=== PATIENT | male | born 1980 | race Caucasian/White ===

== ENCOUNTER → 2019-02-12 | Outpatient (CLI) | payer OTHER ==
--- NOTE | 2019-02-12 16:49 | Diagnostic Imaging Report ---
INDICATION: Right shoulder pain. TIME OF EXAM: 2:30 p.m. FINDINGS: Two views of the right shoulder demonstrate normal glenohumeral and acromioclavicular alignment. Acromiohumeral space is normal. No fracture or dislocation is seen. IMPRESSION: No acute bony abnormality is detected. Dictated by: Dictated on workstation # [id number]
== END ==
LOC: RAD FS 14:24
PROVIDERS: ATTEND Nurse Practitioner Family
DX: M25.511 Pain in right shoulder (principal)
CPT/HCPCS: 73030

== ENCOUNTER 2020-05-12 14:18 | Emergency (ER) | payer OTHER ==
[~2020-05-12] VITALS: Ht 185.4 cm; Wt 101.0 kg
[2020-05-12] MEDS ORDERED: ACHD5005 (14:41)
[2020-05-12] MEDS ORDERED: ALPR0.5T7 PO (14:41)
[2020-05-12] MEDS ORDERED: morphine INJ 10 MG/ML 1ML (SYR OR VIAL) IVP STA ×2 (14:53→15:25)
[2020-05-12] MEDS ORDERED: ONDANSETRON 4 MG/2 ML (SDV) Z0FRAN IVP ONE (15:00)
[2020-05-12 15:03] LABS: BASOPHILS % (AUTO) 1 % (0-10); EOSINOPHILS % (AUTO) 1 % (0-10); HEMATOCRIT 44 % (40-54); HEMOGLOBIN 15.2 G/DL (13.3-17.7); LYMPHOCYTES % (AUTO) 22 % (12-44); MEAN CORPUSCULAR HEMOGLOBIN 30 PG (25-34); MEAN CORPUSCULAR HGB CONC 35 G/DL (32-36); MEAN CORPUSCULAR VOLUME 88 FL (80-99); MEAN PLATELET VOLUME 9.1 FL (7.4-10.4); MONOCYTES % (AUTO) 9 % (0-12); NEUTROPHILS % (AUTO) 68 % (42-75); PLATELET COUNT 318 10^3/uL (130-400); WHITE BLOOD COUNT 10.5 10^3/uL (4.3-11.0)
[2020-05-12 15:04] LABS: BASOPHILS # (AUTO) 0.1 10^3/uL (0.0-0.1); EOSINOPHILS # (AUTO) 0.1 10^3/uL (0.0-0.3); LYMPHOCYTES # (AUTO) 2.3 X 10^3 (1.0-4.0); NEUTROPHILS # (AUTO) 7.2 X 10^3 (1.8-7.8)
[2020-05-12 15:07] LABS: CLARITY,URINE CLEAR; COLOR,URINE YELLOW
[2020-05-12 15:08] LABS: BILIRUBIN,URINE NEGATIVE (NEGATIVE); GLUCOSE, URINE (UA) NEGATIVE (NEGATIVE); KETONES,URINE NEGATIVE (NEGATIVE); LEUKOCYTE ESTERASE ,URINE NEGATIVE (NEGATIVE); NITRITE,URINE NEGATIVE (NEGATIVE); PROTEIN,URINE NEGATIVE (NEGATIVE); RBC,URINE 0-2 /HPF
[2020-05-12 15:10] LABS: ALANINE AMINOTRANSFERASE 65 U/L (0-55); ALBUMIN 4.6 GM/DL (3.2-4.5); ALKALINE PHOSPHATASE 87 U/L (40-136); BILIRUBIN,TOTAL 0.4 MG/DL (0.1-1.0); BUN/CREATININE RATIO 13; CALCIUM 9.1 MG/DL (8.5-10.1); CARBON DIOXIDE 24 MMOL/L (21-32); CHLORIDE 101 MMOL/L (98-107); CREATININE SERUM 0.91 MG/DL (0.60-1.30); GFR ESTIMATED > 60; GLUCOSE 100 MG/DL (70-105); POTASSIUM 4.5 MMOL/L (3.6-5.0); SODIUM 135 MMOL/L (135-145); TOTAL PROTEIN 7.4 GM/DL (6.4-8.2)
--- NOTE | 2020-05-12 15:10 | Diagnostic Imaging Report ---
PROCEDURE: CT abdomen and pelvis without contrast. TECHNIQUE: Multiple contiguous axial images were obtained through the abdomen and pelvis without the use of intravenous contrast. Auto Exposure Controls were utilized during the CT exam to meet ALARA standards for radiation dose reduction. INDICATION: Left flank pain that radiates into the left groin for two days. COMPARISON: No prior studies are available for comparison. FINDINGS: The lung bases are clear. No discrete liver mass is identified. Gallbladder is unremarkable. There is no biliary ductal dilatation. Pancreas and spleen are unremarkable. No adrenal mass is detected. Right kidney is unremarkable. Left kidney demonstrates moderate hydroureteronephrosis. Dilated left ureter is traced into the pelvis where there is a tiny 1 to 2 mm calculus just above the UVJ. No bladder calculi are seen. Aorta is nonaneurysmal. Small and large bowel loops are normal in caliber. There is no obstruction. No free fluid or fluid collection is seen. Prostate is unremarkable. Bony structures are nonacute. IMPRESSION: 1 to 2 mm distal left ureteric calculus producing moderate hydroureteronephrosis. No other significant abnormality is detected. Dictated by: Dictated on workstation # [id number]
[2020-05-12] MEDS ORDERED: KETOROLAC 30 MG/ML VIAL IVP ONE (15:30)
[2020-05-12] MEDS ORDERED: ACHD5005 PO (16:18)
[2020-05-12] MEDS ORDERED: TMSL.4C PO (16:18)
[2020-05-12] MEDS ORDERED: ONDA4TAB11 PO (16:18)
--- NOTE | 2020-05-12 16:19 | ED General ---
General Chief Complaint: - Urinary Stated Complaint: LT FLANK/LT ABD/LT GROIN PAIN Nursing Triage Note: Patient presents ambulatory to ED reporting pain in L flank radiating to L groin/testicle. Pt reports pain started yesterday and worsened since 0200. Pt states he drinks alot of pop. Nursing Sepsis Screen: No Definite Risk History of Present Illness Date Seen by Provider: May 12, 2020 Time Seen by Provider: 14:30 Initial Comments Patient is a 39-year-old male presents with acute onset left flank pain rating to left lower groin. Symptom onset was yesterday evening. Pain is described all, colicky in and rated moderate to severe. Pain waxes and wanes and associated with nausea and vomiting. It is partially relieved with taking a bath and distraction with pacing. Currently denies nausea. No urinary frequency urgency hematuria dysuria decreased urinary output. No prior history of kidney stones. No fever chills, sweats. No abdominal tenderness. No history of diverticulitis. No testicular pain, swelling or tenderness. No other acute symptoms or complaints. Timing/Duration: 12-24 Hours Severity: Severe Modifying Factors: improves with Medication Associated Systoms: Denies Symptoms Allergies and Home Medications Allergies Coded Allergies: egg (Unverified Adverse Reaction, Unknown, 05/12/20) Patient Home Medication List Home Medication List Reviewed: Yes Review of Systems Review of Systems Constitutional: see HPI EENTM: see HPI Cardiovascular: see HPI Gastrointestinal: see HPI Genitourinary: see HPI Musculoskeletal: see HPI Skin: see HPI Psychiatric/Neurological: See HPI Hematologic/Lymphatic: See HPI Immunological/Allergic: see HPI All Other Systems Reviewed Negative Unless Noted: Yes Past Mkphgdo-Brbwfy-Ywjddi Hx Past Med/Social Hx: Reviewed Nursing Past Med/Soc Hx Patient Social History Alcohol Use: Denies Use Recreational Drug Use: No Smoking Status: Unknown if Ever Smoked Recent Foreign Travel: No Contact w/Someone Who Travel: No Recent Infectious Disease Expo: No Recent Hopitalizations: No Physical Abuse: No Sexual Abuse: No Mistreated: No Fear: No Seasonal Allergies Seasonal Allergies: No Past Medical History Surgeries: Yes (Back surgery x 3, shoulder surgery x 2) Orthopedic Respiratory: No Cardiac: No Neurological: No Genitourinary: No Gastrointestinal: No Musculoskeletal: Yes (back surgery x 3) Degenerate Disk Disease, Chronic Back Pain Endocrine: No HEENT: No Cancer: No Psychosocial: No Integumentary: No Blood Disorders: No Physical Exam Vital Signs Vital Signs - First Documented 05/12/20 14:25 Temp 36.5 Pulse 74 Resp 20 B/P (MAP) 178/117 (137) Pulse Ox 98 O2 Delivery Room Air Capillary Refill : Less Than 3 Seconds Height, Weight, BMI Height: '" Weight: lbs. oz. kg; 29.00 BMI Method: General Appearance: Moderate Distress Eyes: Bilateral Eye Normal Inspection, Bilateral Eye PERRL, Bilateral Eye EOMI HEENT: PERRL/EOMI, Normal ENT Inspection, Pharynx Normal Neck: Full Range of Motion, Non Tender, Supple Respiratory: Lungs Clear, Normal Breath Sounds Cardiovascular: Regular Rate, Rhythm, No Edema Gastrointestinal: Non Tender, Soft Back: Normal Inspection, No CVA Tenderness Extremity: Non Tender, No Calf Tenderness Neurologic/Psychiatric: Alert, Oriented x3 Skin: Normal Color, Warm/Dry Focused Exam Sepsis Stage: Ruled Out Progress/Results/Core Measures Suspected Sepsis Recent Fever Within 48 Hours: No Infection Criteria Present: None New/Unexplained Altered Menta: No Sepsis Screen: No Definite Risk SIRS Temperature: Pulse: 74 Respiratory Rate: 20 Laboratory Tests 05/12/20 14:35: White Blood Count 10.5 Blood Pressure 178 /117 Mean: 137 Laboratory Tests 05/12/20 14:35: Creatinine 0.91, Platelet Count 318, Total Bilirubin 0.4 Results/Orders Lab Results Laboratory Tests Test 05/12/20 14:35 Range/Units White Blood Count 10.5 4.3-11.0 10^3/uL Red Blood Count 4.99 4.35-5.85 10^6/uL Hemoglobin 15.2 13.3-17.7 G/DL Hematocrit 44 40-54 % Mean Corpuscular Volume 88 80-99 FL Mean Corpuscular Hemoglobin 30 25-34 PG Mean Corpuscular Hemoglobin Concent 35 32-36 G/DL Red Cell Distribution Width 11.7 10.0-14.5 % Platelet Count 318 130-400 10^3/uL Mean Platelet Volume 9.1 7.4-10.4 FL Immature Granulocyte % (Auto) 0 % Neutrophils (%) (Auto) 68 42-75 % Lymphocytes (%) (Auto) 22 12-44 % Monocytes (%) (Auto) 9 0-12 % Eosinophils (%) (Auto) 1 0-10 % Basophils (%) (Auto) 1 0-10 % Neutrophils # (Auto) 7.2 1.8-7.8 X 10^3 Lymphocytes # (Auto) 2.3 1.0-4.0 X 10^3 Monocytes # (Auto) 1.0 0.0-1.0 X 10^3 Eosinophils # (Auto) 0.1 0.0-0.3 10^3/uL Basophils # (Auto) 0.1 0.0-0.1 10^3/uL Immature Granulocyte # (Auto) 0.0 0.0-0.1 10^3/uL Urine Color YELLOW Urine Clarity CLEAR Urine pH 6.0 5-9 Urine Specific [place] 1.010 L 1.016-1.022 Urine Protein NEGATIVE NEGATIVE Urine Glucose (UA) NEGATIVE NEGATIVE Urine Ketones NEGATIVE NEGATIVE Urine Nitrite NEGATIVE NEGATIVE Urine Bilirubin NEGATIVE NEGATIVE Urine Urobilinogen 0.2 < = 1.0 MG/DL Urine Leukocyte Esterase NEGATIVE NEGATIVE Urine RBC (Auto) 1+ H NEGATIVE Urine RBC 0-2 /HPF Urine WBC NONE /HPF Urine Crystals NONE /LPF Urine Bacteria NONE /HPF Urine Casts NONE /LPF Urine Mucus NEGATIVE /LPF Urine Culture Indicated NO Sodium Level 135 135-145 MMOL/L Potassium Level 4.5 3.6-5.0 MMOL/L Chloride Level 101 98-107 MMOL/L Carbon Dioxide Level 24 21-32 MMOL/L Anion Gap 10 5-14 MMOL/L Blood Urea Nitrogen 12 7-18 MG/DL Creatinine 0.91 0.60-1.30 MG/DL Estimat Glomerular Filtration Rate > 60 BUN/Creatinine Ratio 13 Glucose Level 100 70-105 MG/DL Calcium Level 9.1 8.5-10.1 MG/DL Corrected Calcium 8.5-10.1 MG/DL Total Bilirubin 0.4 0.1-1.0 MG/DL Aspartate Amino Transf (AST/SGOT) 35 H 5-34 U/L Alanine Aminotransferase (ALT/SGPT) 65 H 0-55 U/L Alkaline Phosphatase 87 40-136 U/L Total Protein 7.4 6.4-8.2 GM/DL Albumin 4.6 H 3.2-4.5 GM/DL My Orders Orders - CORTNEY SHIRLEY DO Urinalysis (05/12/20 14:38) Ct Abdomen/Pelvis Wo (05/12/20 14:38) Cbc With Automated Diff (05/12/20 14:38) Comprehensive Metabolic Panel (05/12/20 14:38) Morphine Injection (Morphine Injection (05/12/20 14:53) Ondansetron Injection (Zofran Injectio (05/12/20 15:00) Morphine Injection (Morphine Injection (05/12/20 15:25) Ketorolac Injection (Toradol Injection) (05/12/20 15:30) Medications Given in ED Current Medications Medications Dose Ordered Sig/Cheryl Route Start Time Stop Time Status Last Admin Dose Admin Ketorolac Tromethamine 30 mg ONCE ONCE IVP 05/12/20 15:30 05/12/20 15:31 DC 05/12/20 15:48 30 MG Ondansetron HCl 4 mg ONCE ONCE IVP 05/12/20 15:00 05/12/20 15:01 DC 05/12/20 15:01 4 MG Vital Signs/I&O 05/12/20 05/12/20 05/12/20 05/12/20 14:25 15:01 15:48 15:48 Temp 36.5 36.5 36.5 36.5 Pulse 74 Resp 20 B/P (MAP) 178/117 (137) Pulse Ox 98 O2 Delivery Room Air Capillary Refill : Less Than 3 Seconds Blood Pressure Mean: 137 Departure Communication (Admissions) CT abdomen and pelvis: 1-2 mm distal left ureteral stone with moderate h ydronephrosis. Lab and imaging studies reviewed. Patient's pain significantly improved improved with repeat pain medication. CT shows small stone with high probability of passing. We'll continue supportive care watchful waiting with PCP follow-up. Return precautions reviewed. Patient verbalized understanding and agreement discharge instructions prior to departure. Impression Primary Impression: Left facial pain Additional Impression: Kidney stone on left side Disposition: HOME, SELF-CARE Condition: Stable Departure-Patient Inst. Referrals: [facility] (PCP) Primary Care Physician HALLEY SUNG APRN (Family) Primary Care Physician Patient Instructions: Acute Pain, Adult (DC), Kidney Stones in Adults Add. Discharge Instructions: Please increase fluids and take newly prescribed pain medications as directed. Strain urine for stone and follow-up with your PCP for reevaluation of stone type once past. Return to ED if new or worsening symptoms. All discharge instructions reviewed with patient and/or family. Voiced understanding. Scripts Ondansetron (Ondansetron Odt) 4 Mg Tab.rapdis 4 MG PO Q6H, #10 TAB Prov: CORTNEY SHIRLEY DO 05/12/20 Hydrocodone/Acetaminophen (Hydrocodone-Acetamin 5-325 mg) 1 Each Tablet 1 EACH PO Q6H, #20 TAB Prov: CORTNEY SHIRLEY DO 05/12/20 Tamsulosin HCl (Flomax) 0.4 Mg Cap 0.4 MG PO DAILY, #30 CAP Prov: CORTNEY SHIRLEY DO 05/12/20 CORTNEY SHIRLEY DO May 12, 2020 16:19
[2020-05-12 16:30] VITALS: BP 137/97
== END 2020-05-12 16:30 | disposition home or self-care (01) ==
LOC: EDUNIT# 14:18 → ER FS 14:20
DX: R51.9 Headache, unspecified (principal); N13.2 Hydronephrosis with renal and ureteral calculous obstruction
CPT/HCPCS: 36415; 74176; 80053; 81000; 85025

== ENCOUNTER 2020-05-14 05:00 | Emergency (ER) | payer OTHER ==
[~2020-05-14] VITALS: Ht 188 cm; Wt 102.3 kg
[~2020-05-14 05:00] MED LIST: ACHD5005; ACHD5005 PO; ALPR0.5T7 PO; ONDA4TAB11 PO; TMSL.4C PO
[2020-05-14] MEDS ORDERED: fentaNYL INJECTION 100 MCG/2 ML AMP IVP STA ×2 (05:15→05:49)
[2020-05-14] MEDS ORDERED: KETOROLAC 30 MG/ML VIAL IVP STA (05:15)
[2020-05-14] MEDS ORDERED: ONDANSETRON 4 MG/2 ML (SDV) Z0FRAN IVP STA ×2 (05:15→05:49)
[2020-05-14] MEDS ORDERED: NS IV 1000 ML 1,000 ML IV STA (05:15)
--- NOTE | 2020-05-14 05:22 | ED GU-Male ---
General Chief Complaint: Abdominal/GI Problems Stated Complaint: KIDNEY STONE/VOMITING Source: patient, old records History of Present Illness Date Seen by Provider: May 14, 2020 Time Seen by Provider: 05:03 Initial Comments 39 yo Male presents to the ED with complaints of recurrent left flank pain radiating to his left groin and testicle. He was seen on 12 May 2020 for similar pain and was diagnosed with kidney stone in distal ureter of 1-2 mm with hydronephrosis and hydroureter. He has been taking hydrocodone at home but is unable to take more than 1/2 a tab without getting sick to his stomach. He has Zofran ODT as well but he has recurrent pain this am and the nausea with the pain was not being controlled with Zofran and Hydrocodone this morning. He was not sure what else to do so he returned to the ED when he could not get comfortable at home and could not stop vomiting. He has no fever or chills and no change in stools. Allergies and Home Medications Allergies Coded Allergies: egg (Unverified Adverse Reaction, Unknown, 05/12/20) Home Medications Hydrocodone/Acetaminophen 1 Each Tablet, 1 EACH PO Q6H Prescribed by: CORTNEY SHIRLEY on 05/12/20 1618 Ondansetron 4 Mg Tab.rapdis, 4 MG PO Q6H Prescribed by: CORTNEY SHIRLEY on 05/12/20 1618 Tamsulosin HCl 0.4 Mg Cap, 0.4 MG PO DAILY Prescribed by: CORTNEY SHIRLEY on 05/12/20 1618 Patient Home Medication List Home Medication List Reviewed: Yes Review of Systems Review of Systems Constitutional: No chills, No fever EENTM: no symptoms reported Respiratory: no symptoms reported Cardiovascular: no symptoms reported Gastrointestinal: see HPI Genitourinary: see HPI; denies burning, denies dysuria; flank pain (left side radiating to groin and left testicle), hematuria Musculoskeletal: see HPI Skin: No rash Psychiatric/Neurological: No Symptoms Reported Past Pswuzjv-Ucengq-Slqhbg Hx Past Med/Social Hx: Reviewed Nursing Past Med/Soc Hx Patient Social History Recent Foreign Travel: No Contact w/Someone Who Travel: No Recent Hopitalizations: No Seasonal Allergies Seasonal Allergies: No Past Medical History Surgeries: Yes (Back surgery x 3, shoulder surgery x 2) Orthopedic Respiratory: No Cardiac: No Neurological: No Genitourinary: No Gastrointestinal: No Musculoskeletal: Yes (back surgery x 3) Degenerate Disk Disease, Chronic Back Pain Endocrine: No HEENT: No Cancer: No Psychosocial: No Integumentary: No Blood Disorders: No Physical Exam Vital Signs Vital Signs - First Documented 05/14/20 05:10 Temp 36.5 Pulse 94 Resp 16 B/P (MAP) 177/121 (139) Pulse Ox 97 O2 Delivery Room Air Capillary Refill : Height, Weight, BMI Height: '" Weight: lbs. oz. kg; 29.00 BMI Method: General Appearance: WD/WN, moderate distress Cardiovascular: normal peripheral pulses, regular rate, rhythm Respiratory: chest non-tender, lungs clear, normal breath sounds Gastrointestinal: normal bowel sounds, soft, no pulsatile mass Extremities: normal range of motion, normal capillary refill Neurologic/Psychiatric: alert, oriented x 3 Skin: normal color, warm/dry Progress/Results/Core Measures Suspected Sepsis SIRS Temperature: Pulse: Respiratory Rate: Blood Pressure / Mean: Results/Orders My Orders Orders - GUILLERMINA FELICIANO MD Ed Iv/Invasive Line Start (05/14/20 05:15) Ns Iv 1000 Ml (Sodium Chloride 0.9%) (05/14/20 05:15) Ondansetron Injection (Zofran Injectio (05/14/20 05:15) Ketorolac Injection (Toradol Injection) (05/14/20 05:15) Fentanyl Injection (Sublimaze Injection (05/14/20 05:15) Fentanyl Injection (Sublimaze Injection (05/14/20 05:49) Ondansetron Injection (Zofran Injectio (05/14/20 05:49) Vital Signs/I&O 05/14/20 05/14/20 05:10 06:13 Temp 36.5 Pulse 94 66 Resp 16 16 B/P (MAP) 177/121 (139) 131/93 Pulse Ox 97 99 O2 Delivery Room Air Room Air Capillary Refill : Progress Note #1: Progress Note pt unable to find a comfortable position. place an IV and give IVF for hydration, Toradol 30 mg IV for pain, Fentanyl 50 mcg IV for pain, Zofran 4 mg IV for nausea. CT report from May reviewed. IMPRESSION: 1 to 2 mm distal left ureteric calculus producing moderate hydroureteronephrosis. No other significant abnormality is detected. Progress Note #2: Time: 05:48 Progress Note pt reports pain went from 8 or 9 down to 5 with treatment. Fluids infused. Will try repeating a dose of Fentanyl 50 mcg and Zofran 4 mg as he was still having pain and was starting to have nausea again. He would like to still try going home rather than admit for fluids and pain control since the stone does not have to move very far. Progress Note #3: Time: 06:02 Progress Note on recheck after repeat medicine pt was feeling better and pain down to 2/10. Counseled on follow up and return precautions. Pt contacting his for ride home. Departure Impression Primary Impression: Kidney stone on left side Additional Impression: Renal colic on left side Disposition: 01 HOME, SELF-CARE Condition: Improved Departure-Patient Inst. Decision time for Depature: 06:07 Referrals: [facility] [place] (PCP) Primary Care Physician HALLEY SUNG APRN (Family) Primary Care Physician JENNA PENNY MD Patient Instructions: Kidney Stone Diet, Kidney Stones (DC), Renal Colic, How to Strain Your Urine Add. Discharge Instructions: Continue to drink fluids and avoid soda and pop. Strain your urine to see when the kidney stone passes. If you have pain uncontrolled, fever over 101 F, or can not keep anything down return or seek medical care as you may need additional IV medicine or possibly even admit for urology to help the stone pass. If you continue to have problems or concerns check with your regular provider during the week or you can check with Urology, Dr. Penny, out of [place]. All discharge instructions reviewed with patient and/or family. Voiced understanding. GUILLERMINA FELICIANO MD May 14, 2020 05:22
[2020-05-14 06:13] VITALS: BP 131/93
[2020-05-18] MEDS ORDERED: ACHD5005 PO (09:44)
[2020-05-18] MEDS ORDERED: SULF1TAB35 PO (09:44)
== END 2020-05-14 06:13 | disposition home or self-care (01) ==
LOC: EDUNIT# 05:00 → ER FS 05:05
DX: N13.2 Hydronephrosis with renal and ureteral calculous obstruction (principal); N23 Unspecified renal colic; G89.29 Other chronic pain; M54.9 Dorsalgia, unspecified; Z79.891 Long term (current) use of opiate analgesic

== ENCOUNTER 2020-05-15 11:19 | Inpatient (IN) | payer OTHER ==
[~2020-05-15] VITALS: Ht 187.9 cm; Wt 98.3 kg
[2020-05-15] MEDS ORDERED: KETOROLAC 30 MG/ML VIAL IVP STA (11:51)
[2020-05-15] MEDS ORDERED: fentaNYL INJECTION 100 MCG/2 ML AMP IVP STA ×2 (11:51→12:42)
--- NOTE | 2020-05-15 12:17 | ED GU-Male ---
General Chief Complaint: Back Problems Stated Complaint: VOMITING; KIDNEY STONE Nursing Triage Note: Patient reports left sided flank pain since Saturday, states he had blood in his urine on . Patient seen in the ED early on Saturday, given prescription for hydrocodone. States he took hydrocodone at 6 am this morning and 3 ibprofen at 9:30 am, states he has had no relief from his pain. Source: patient, old records History of Present Illness Date Seen by Provider: May 15, 2020 Time Seen by Provider: 11:52 Initial Comments 39-year-old male presenting from the third ER visit with the continued pain in the left flank. He was diagnosed with a 2 mm kidney stone on 12 May. He has been taking hydrocodone, tamsulosin, ondansetron at home. He has also been supplementing this with ibuprofen. He has been trying to drink extra fluids but continues to have severe pain. He has had recurrent episodes of pain to the point that he has had to come back to the emergency department twice now for pain control. He has had no fever or chills. He has episodes where he vomits to the point that he needs IV medication to control his pain and vomiting. He can not take more than 1/2 of a Hydrocodone without causing GI upset and the Ibuprofen and other oral medicines can causea GI upset as well. Even with the Ondansetron dissolving under his tongue he is not able to control his n/v when the pain comes on so strong. Allergies and Home Medications Allergies Coded Allergies: egg (Unverified Adverse Reaction, Unknown, 05/12/20) Home Medications Hydrocodone/Acetaminophen 1 Each Tablet, 1 EACH PO Q6H Prescribed by: CORTNEY SHIRLEY on 05/12/201617 Ondansetron 4 Mg Tab.rapdis, 4 MG PO Q6H Prescribed by: CORTNEY SHIRLEY on 05/12/20 161 Tamsulosin HCl 0.4 Mg Cap, 0.4 MG PO DAILY Prescribed by: CORTNEY SHIRLEY on 05/12/20 161 Patient Home Medication List Home Medication List Reviewed: Yes Review of Systems Review of Systems Constitutional: No chills, No fever EENTM: no symptoms reported Respiratory: no symptoms reported Cardiovascular: no symptoms reported Gastrointestinal: see HPI, constipation Genitourinary: see HPI Musculoskeletal: back pain (chronic back pain) Skin: no symptoms reported Psychiatric/Neurological: No Symptoms Reported Past Eiywaib-Zjudvt-Pyilal Hx Past Med/Social Hx: Reviewed Nursing Past Med/Soc Hx Patient Social History Alcohol Use: Occasionally Uses Recreational Drug Use: No Smoking Status: Never a Smoker 2nd Hand Smoke Exposure: No Recent Foreign Travel: No Contact w/Someone Who Travel: No Recent Infectious Disease Expo: No Recent Hopitalizations: No Physical Abuse: No Sexual Abuse: No Mistreated: No Fear: No Seasonal Allergies Seasonal Allergies: No Past Medical History Surgeries: Yes (Back surgery x 3, shoulder surgery x 2) Orthopedic Respiratory: No Cardiac: No Neurological: No Genitourinary: No Gastrointestinal: No Musculoskeletal: Yes (back surgery x 3) Degenerate Disk Disease, Chronic Back Pain Endocrine: No HEENT: No Cancer: No Psychosocial: No Integumentary: No Blood Disorders: No Physical Exam Vital Signs Vital Signs - First Documented 05/15/20 11:39 Temp 35.2 Pulse 84 Resp 20 B/P (MAP) 152/109 (123) Pulse Ox 99 O2 Delivery Room Air Capillary Refill : Less Than 3 Seconds Height, Weight, BMI Height: '" Weight: lbs. oz. kg; 28.00 BMI Method: General Appearance: WD/WN, severe distress HEENT: PERRL/EOMI Neck: non-tender, full range of motion, supple Cardiovascular: normal peripheral pulses, regular rate, rhythm Respiratory: chest non-tender, lungs clear, normal breath sounds Gastrointestinal: soft, no pulsatile mass Back: no CVA tenderness, other (pain left flank wrapping around to LLQ) Extremities: normal range of motion, non-tender, normal capillary refill Neurologic/Psychiatric: alert, oriented x 3 Skin: normal color, warm/dry Progress/Results/Core Measures Suspected Sepsis Recent Fever Within 48 Hours: No Infection Criteria Present: None New/Unexplained Altered Menta: No Sepsis Screen: No Definite Risk SIRS Temperature: Pulse: 84 Respiratory Rate: 20 Blood Pressure 152 /109 Mean: 123 Laboratory Tests 05/15/20 11:55: Creatinine 1.26 Results/Orders Lab Results Laboratory Tests Test 05/15/20 11:55 Range/Units Sodium Level 138 135-145 MMOL/L Potassium Level 3.9 3.6-5.0 MMOL/L Chloride Level 104 98-107 MMOL/L Carbon Dioxide Level 24 21-32 MMOL/L Anion Gap 10 5-14 MMOL/L Blood Urea Nitrogen 13 7-18 MG/DL Creatinine 1.26 0.60-1.30 MG/DL Estimat Glomerular Filtration Rate > 60 BUN/Creatinine Ratio 10 Glucose Level 104 70-105 MG/DL Calcium Level 8.9 8.5-10.1 MG/DL My Orders Orders - GUILLERMINA FELICIANO MD Ed Iv/Invasive Line Start (05/15/20 11:51) Basic Metabolic Panel (05/15/20 11:51) Ketorolac Injection (Toradol Injection) (05/15/20 11:51) Fentanyl Injection (Sublimaze Injection (05/15/20 11:51) Ondansetron Injection (Zofran Injectio (05/15/20 12:42) Fentanyl Injection (Sublimaze Injection (05/15/20 12:42) Vital Signs/I&O 05/15/20 05/15/20 11:39 13:37 Temp 35.2 36.7 Pulse 84 91 Resp 20 16 B/P (MAP) 152/109 (123) 140/98 Pulse Ox 99 99 O2 Delivery Room Air Capillary Refill : Less Than 3 Seconds Blood Pressure Mean: 123 Progress Note #1: Progress Note with repeat ED visit will give IV pain medicine and toradol and recheck BMP to ensure he has no change in his Cr or electrolytes. Progress Note #2: Progress Note Pt pain down to 5/10 after Fentanyl 50 mcg and Toradol 30 mg. Will add on repeat 50 mcg Fentanyl and Zofran [address] Lim for [facility] about observation admit for IVF and pain control with consult to Dr. Degroot with Urology. His Cr did have slight increase from 0.91 to 1.26 to go with dehydration/obstruction. This factor in addition to not being able to control pain and symptoms with oral medicine and having recurrent pain/nausea despite medicine are reasons for observation admit and Urology consult in the hospital. 1308 Dr. Lim called back and accepted pt for admit. Departure Communication (Admissions) Time/Spoke to Admitting Phy: 13:08 d/w Dr. Lim generation technician for [facility] clinic. He accepted pt for observation admit to treat for uncontrolled kidney stone pain. He has had multiple ED visits and continues to have n/v and uncontrolled pain despite meds at home. Will admit for IV meds, IVF and consult Dr. Degroot for Urology to see him Wilfred Dec. 14th. Impression Primary Impression: Renal colic on left side Additional Impression: Kidney stone on left side Disposition: 30 STILL A PATIENT Condition: Stable Admissions Decision to Admit Reason: Admit from ER (General) Decision to Admit/Date: May 15, 2020 Time/Decision to Admit Time: 13:08 Departure-Patient Inst. [facility]errals: [facility] [place] ([place]P) Primary Care Physician HALLEY SUNG APRN (Family) Primary Care Physician GUILLERMINA FELICIANO MD May 15, 2020 12:17
[2020-05-15 12:26] LABS: BUN/CREATININE RATIO 10; CALCIUM 8.9 MG/DL (8.5-10.1); CARBON DIOXIDE 24 MMOL/L (21-32); CHLORIDE 104 MMOL/L (98-107); CREATININE SERUM 1.26 MG/DL (0.60-1.30); GFR ESTIMATED > 60; GLUCOSE 104 MG/DL (70-105); POTASSIUM 3.9 MMOL/L (3.6-5.0); SODIUM 138 MMOL/L (135-145)
[2020-05-15] MEDS ORDERED: ONDANSETRON 4 MG/2 ML (SDV) Z0FRAN IVP STA (12:42)
[2020-05-15 15:20] VITALS: BP 125/79
[2020-05-15] MEDS ORDERED: HYDROcodone/APAP 5 MG/325 MG (LORTAB) TAB PO PRN (15:30)
[2020-05-15] MEDS: NS IV 1000 ML 1,000 ML IV SCH (15:41)
[2020-05-15] MEDS: SENNA W/DOCUSATE (SENOKOT S) TABLET PO SCH ×2 (16:11→19:50)
[2020-05-15] MEDS: HYDROcodone/APAP 5 MG/325 MG (LORTAB) TAB PO PRN ×2 (16:50→22:09)
[2020-05-15] MEDS ORDERED: TAMSULOSIN 0.4 MG (FLOMAX) CAP PO SCH (18:00)
[2020-05-15] MEDS ORDERED: ONDANSETRON 4 MG/2 ML (SDV) Z0FRAN IVP PRN (19:00)
[2020-05-15] MEDS: fentaNYL INJECTION 100 MCG/2 ML AMP IVP PRN ×2 (19:50→23:47)
[2020-05-15 21:00] VITALS: BP 114/74
[2020-05-15] MEDS: KETOROLAC 30 MG/ML VIAL IVP PRN (22:07)
[2020-05-15 23:44] VITALS: BP 160/97
[2020-05-16] MEDS: NS IV 1000 ML 1,000 ML IV SCH ×4 (02:02→20:35)
[2020-05-16] MEDS: fentaNYL INJECTION 100 MCG/2 ML AMP IVP PRN ×5 (03:53→23:59)
[2020-05-16] MEDS: HYDROcodone/APAP 5 MG/325 MG (LORTAB) TAB PO PRN ×4 (03:53→18:05)
[2020-05-16 03:58] VITALS: BP 139/84
[2020-05-16] MEDS: SENNA W/DOCUSATE (SENOKOT S) TABLET PO SCH ×2 (07:50→19:53)
[2020-05-16] MEDS: TAMSULOSIN 0.4 MG (FLOMAX) CAP PO SCH (07:50)
[2020-05-16 08:00] VITALS: BP 166/92
[2020-05-16] MEDS: KETOROLAC 30 MG/ML VIAL IVP PRN ×2 (08:39→15:36)
[2020-05-16] MEDS: cefTRIAXone FOR IV USE 1,000 MG in WATER (STERILE) FOR INJECTION 10 ML IV SCH (10:13)
--- NOTE | 2020-05-16 10:20 | History & Physical-Hospitalist ---
History of Present Illness HPI/Chief Complaint CC: Back Pain HPI: This is a 39yoWM clinic pt of Romy Александр who presents after diagnosed with a kidney stone on Saturday at the UV junction but he worsened, back pain worsened, and he required inpatient status for IV fluid resuscitation along with Rocephin empiric antibiotics and straining the urine. I did speak with urology who will see him and will ge a KUB abdominal film and will be monitored closely. May need a stent. Source: patient Exam Limitations: no limitations Date Seen 05/16/20 Time Seen by a Provider: 10:00 Attending Physician Antonia Denson DO [facility] Center/[facility] [place] [facility] Referring Physician Date of Admission May 15, 2020 at 14:51 Home Medications & Allergies Home Medications Reviewed patient Home Medication Reconciliation performed by pharmacy medication reconciliations production maintenance technician and/or nursing. Patients Allergies have been reviewed. Allergies Allergies Coded Allergies egg (Unverified Adverse Reaction, Unknown, 05/12/20) Past Rnawlrk-Mapysh-Cmlben Hx Past Med/Social Hx: Reviewed Nursing Past Med/Soc Hx, Reviewed and Corrections made Patient Social History Marrital Status: Employed/Student: employed Alcohol Use: Occasionally Uses Recreational Drug Use: No Smoking Status: Never a Smoker 2nd Hand Smoke Exposure: No Physical Abuse Screen: No Sexual Abuse: No Recent Foreign Travel: No Contact w/other who traveled: No Recent Hopitalizations: No Recent Infectious Disease Expo: No Seasonal Allergies Seasonal Allergies: No Past Medical History Surgeries: Orthopedic Musculoskeletal: Degenerate Disk Disease, Chronic Back Pain History of Blood Disorders: No Review of Systems Constitutional: see HPI Musculoskeletal: back pain Physical Exam Physical Exam Vital Signs Vital Signs - First Documented 05/15/20 11:39 Temp 35.2 Pulse 84 Resp 20 B/P (MAP) 152/109 (123) Pulse Ox 99 O2 Delivery Room Air Capillary Refill : Less Than 3 Seconds Height, Weight, BMI Height: '" Weight: lbs. oz. kg; 28.66 BMI Method: General Appearance: No Apparent Distress Eyes: Right Eye Normal Inspection, Right Eye PERRL HEENT: PERRL/EOMI, Normal ENT Inspection, Pharynx Normal, Moist Mucous Membranes Neck: Full Range of Motion, Normal Inspection, Non Tender Respiratory: Chest Non Tender, Lungs Clear, Normal Breath Sounds, No Accessory Muscle Use, No Respiratory Distress Cardiovascular: Regular Rate, Rhythm, No Edema, No Gallop, No JVD, No Murmur, Normal Peripheral Pulses Gastrointestinal: Normal Bowel Sounds, No Organomegaly, No Pulsatile Mass, Non Tender, Soft Back: Normal Inspection, No CVA Tenderness, No Vertebral Tenderness Extremity: Normal Capillary Refill, Normal Inspection, Normal Range of Motion, Non Tender, No Calf Tenderness, No Pedal Edema Neurologic/Psychiatric: Alert, Oriented x3, No Motor/Sensory Deficits, Normal Mood/Affect Skin: Normal Color, Warm/Dry Lymphatic: No Adenopathy Results Results/Procedures Labs Laboratory Tests 05/15/20 11:55 Patient resulted labs reviewed. Assessment/Plan Admission Diagnosis Assessment: Left UVJ kidney stone with hydronephrosis N/V Abdominal pain Plan: Pain meds IVF Rocephin Urology Admission Status: Inpatient Order (span 2 midnights) Reason for Inpatient Admission: kidney stone with hydronephrosis Diagnosis/Problems Diagnosis/Problems (1) Kidney stone on left side Status: Acute (2) Renal colic on left side Status: Acute Clinical Quality Measures DVT/VTE Risk/Contraindication: RFS Level Per Nursing on Admit: 0=No Risk/No VTE PPX ANTONIA DENSON DO May 16, 2020 10:20
[2020-05-16] MEDS ORDERED: ONDA4TAB11 PO (10:37)
[2020-05-16] MEDS ORDERED: DOCU100T7 PO (10:37)
[2020-05-16] MEDS ORDERED: ACHD5005 PO (10:37)
[2020-05-16] MEDS ORDERED: TMSL.4C PO (10:37)
[2020-05-16] MEDS ORDERED: OMEP20TA33 PO (10:37)
[2020-05-16] MEDS ORDERED: IBUP-2473 PO (10:37)
--- NOTE | 2020-05-16 10:38 | NUR ---
SPOKE WITH THE PT AND WENT THRU THE EXT MED HISTORY TO COMPLETE THE MED REC PT WAS ABLE TO NAME ALL HIS MEDICATIONS WELL WHEN/HOW HE TAKES EACH OTC MDS: PRILOSEC IBUPROFEN STOOL SOFTENER
--- NOTE | 2020-05-16 11:46 | Diagnostic Imaging Report ---
Abdomen and pelvis 1119h. INDICATION: Left flank pain, kidney stone The CT abdomen/pelvis exam of 05/12/2020 noted a 1-2 mm calculus in the distal left ureter. That calcific density still appears to be present on this exam. There is no other pathological calcification identified and there is no sign of an acute abnormality otherwise. IMPRESSION: 1. The small obstructive calculus in the distal left calculus seen previously is again evident and does not seem to have changed significantly in position. 2. There is no acute abnormality identified. Dictated by: Dictated on workstation # [id number]
[2020-05-16 12:00] VITALS: BP 159/94
--- NOTE | 2020-05-16 14:42 | NUR ---
RD ASSESSMENT PMHx: no significant PMH; current - kidney stone PT INTERACTION: Pt was awake and pleasant during nutrition assessment. Pt states current appetite is "so-so" and has been this way for the last 2-3d. Note PO intake 100% x1meal, per chart review. Pt states following a regular diet at home, and has no issues with chewing/swallowing food. Pt states some recent issues with nausea, vomiting, constipation, and diarrhea, and that his last BM was 10. Note pt currently on bowel regimen of senna BID, per chart review. Pt states no recent wt changes. Note unable to determine recent wt hx, per chart review. Pt states having allergy to egg, but not if it is cooked in food products. ABNORMAL NUTRITION-RELATED LAB VALUES Labs WNL at this time. Est. kcal needs: 3561-2997 kcal | 20-25 kcal/kg Est. Pro needs: 78-98 g Pro | 0.8-1.0 g Pro/kg PES STATEMENT: Inadequate oral intake (NI-2.1) related to loss of appetite, nausea, vomiting, constipation, and diarrhea, as evidenced by pt interview. INTERVENTION: Continue with current diet order of Regular diet. Note dietary will not provide eggs to pt, d/t allergy. Will continue to follow and reassess as pt needs, intake, and status change. Vaibhav VÁZQUEZ, MS RD LD [phone] cell
[2020-05-16 16:00] VITALS: BP 160/102
[2020-05-16 19:39] VITALS: BP 150/100
--- NOTE | 2020-05-16 20:48 | CONSULTATION REPORT ---
DATE OF SERVICE: 05/16/2020 ATTENDING PHYSICIAN: Dr. Denson. SUMMARY: After reviewing the patient's records, interviewing him and examining him, this is a 39-year-old white man admitted with 2 mm stone in the left distal ureter with moderate hydro. He has been passing the stone with few days and the pain became severe to require admission for pain control. This is his first stone. He denies previous history of stones, but denies family history of stones. ALLERGIES: He has no known drug allergies. SOCIAL HISTORY: He is , has two children. No smoking, no alcohol, no drugs. REVIEW OF SYSTEMS: Negative. PAST SURGICAL HISTORY: Had two shoulder surgeries and two back surgeries. He is healthy except for osteoarthritis and degenerative joint disease. PHYSICAL EXAMINATION: VITAL SIGNS: Per chart. GENERAL: Well-nourished, well-developed, in no acute distress on my examination. The patient has been medicated. HEAD: Normocephalic. SKIN: Warm and dry. NECK: Supple, no bruits. ENT: Unremarkable. CHEST: Clear. HEART: Regular rate and rhythm. ABDOMEN: Soft with mild left CVA tenderness. EXTREMITIES: Lower extremity, no edema or cyanosis. NEUROLOGIC: Grossly intact. Oriented x3. IMPRESSION: 1. Left distal ureteral stone with pain and hydronephrosis. 2. Degenerative joint disease with osteoarthritis. PLAN: We will continue to give him a chance to pass it on his own. If he does not by tomorrow morning, we will proceed with surgery. We will keep him n.p.o. after midnight, get a KUB in the morning and proceed. If no stone passed with a left ureteroscopy or stone lithotripsy, possible basket stent, ESWL or lithotomy. The plan and the procedures were fully explained to the patient and all of his questions were answered. Job ID: [id number] DocumentID: [id number] Dictated Date: 05/16/2020 17:29:34 [employer]ye House Supervisor Date: 05/16/2020 20:47:27 Dictated By: JENNA PENNY MD
[2020-05-16 23:58] VITALS: BP 170/108
[2020-05-17] VITALS (10 sets, daily range): BP systolic 98–159; BP diastolic 60–102
[2020-05-17] MEDS: HYDROcodone/APAP 5 MG/325 MG (LORTAB) TAB PO PRN ×2 (00:39→12:46)
[2020-05-17] MEDS: fentaNYL INJECTION 100 MCG/2 ML AMP IVP PRN ×2 (02:53→05:56)
[2020-05-17] MEDS: KETOROLAC 30 MG/ML VIAL IVP PRN (03:25)
[2020-05-17] MEDS: NS IV 1000 ML 1,000 ML IV SCH (04:12)
[2020-05-17 05:41] LABS: BASOPHILS % (AUTO) 0 % (0-10); EOSINOPHILS # (AUTO) 0.1 10^3/uL (0.0-0.3); EOSINOPHILS % (AUTO) 1 % (0-10); HEMATOCRIT 37 % (40-54); LYMPHOCYTES # (AUTO) 0.8 10^3/uL (1.0-4.0); LYMPHOCYTES % (AUTO) 9 % (12-44); MEAN CORPUSCULAR HEMOGLOBIN 30 pg (25-34); MEAN CORPUSCULAR HGB CONC 33 g/dL (32-36); MEAN CORPUSCULAR VOLUME 93 fL (80-99); MEAN PLATELET VOLUME 9.6 fL (9.0-12.2); MONOCYTES % (AUTO) 11 % (0-12); NEUTROPHILS # (AUTO) 7.5 10^3/uL (1.8-7.8); NEUTROPHILS % (AUTO) 80 % (42-75); PLATELET COUNT 230 10^3/uL (130-400); WHITE BLOOD COUNT 9.5 10^3/uL (4.3-11.0)
[2020-05-17 05:49] LABS: ALBUMIN 3.4 GM/DL (3.2-4.5); POTASSIUM 3.8 MMOL/L (3.6-5.0)
[2020-05-17 05:50] LABS: CALCIUM 8.1 MG/DL (8.5-10.1)
[2020-05-17 05:51] LABS: TOTAL PROTEIN 6.2 GM/DL (6.4-8.2)
[2020-05-17 05:53] LABS: BILIRUBIN,TOTAL 0.7 MG/DL (0.1-1.0)
[2020-05-17 05:55] LABS: CREATININE SERUM 1.36 MG/DL (0.60-1.30)
[2020-05-17] MEDS: TAMSULOSIN 0.4 MG (FLOMAX) CAP PO SCH (07:25)
[2020-05-17] MEDS: SENNA W/DOCUSATE (SENOKOT S) TABLET PO SCH ×2 (07:25→21:23)
--- NOTE | 2020-05-17 07:52 | Progress Note-Pre Operative ---
Pre-Operative Progress Note H&P Reviewed The H&P was reviewed, patient examined and no changes noted. Date Seen by Provider: May 17, 2020 Time Seen by Provider: 07:51 Date H&P Reviewed: May 17, 2020 Time H&P Reviewed: 07:51 Pre-Operative Diagnosis: LT DISTAL URETERAL STONE JENNA PENNY MD May 17, 2020 07:52
[2020-05-17] MEDS: cefTRIAXone FOR IV USE 1,000 MG in WATER (STERILE) FOR INJECTION 10 ML IV SCH (08:55)
[2020-05-17] MEDS ORDERED: fentaNYL INJECTION 100 MCG/2 ML AMP ONE ×2 (08:59→09:41)
[2020-05-17] MEDS ORDERED: MIDAZOLAM 2 MG/2 ML (VERSED) VIAL ONE (09:00)
--- NOTE | 2020-05-17 09:00 | NUR ---
Patient taken for procedure at this time. updated by telephone.
[2020-05-17] MEDS ORDERED: SEVOFLURANE (ULTANE) 15 ML INHAL SOLN ONE ×2 (09:22→10:36)
[2020-05-17] MEDS ORDERED: LIDOCAINE PF 0.5% 50 ML (XYLOCAINE) VIAL ONE (09:22)
[2020-05-17] MEDS ORDERED: ONDANSETRON 4 MG/2 ML (SDV) Z0FRAN ONE (09:22)
[2020-05-17] MEDS ORDERED: proPOfol 200 MG/20 ML (DIPRIVAN) VIAL IV ONE ×2 (09:22→09:55)
[2020-05-17] MEDS ORDERED: ROCURONIUM 10 MG/ML 5 ML SYRINGE IV ONE (09:26)
--- NOTE | 2020-05-17 09:32 | Diagnostic Imaging Report ---
Spine at 8:42. Indication: Left nephrolithiasis As noted on the prior exam of 05/16/2020, there is still a minute calcific density near the ureterovesical junction on the left. The overall appearance of the abdomen has not changed significantly otherwise. Impression: There continues to be a minute 1 to 2 mm calculus near the expected location of the ureterovesical junction on the left. When compared to the prior study there does not appear to be any significant change. Dictated by: Dictated on workstation # [id number]
--- NOTE | 2020-05-17 09:33 | Progress Note-Post Operative ---
Post-Operative Progess Note Surgeon (s)/Ships Equipment Engineer (s) Surgeon JENNA PENNY MD Ships Equipment Engineer: NONE Pre-Operative Diagnosis LT DISTAL URETERAL STONE Post-Operative Diagnosis SAME Procedure & Operative Findings Date of Procedure 05/17/20 Procedure Performed/Findings CYSTOSCOPY, LT URETEROSCOPY, INSERTION OF LT URETERAL CATHETER, RETROGRADE UROGRAM AND LT ESWL Anesthesia Type GENERAL Estimated Blood Loss Estimated blood loss (mL): NONE Specimens/Packing Specimens Removed NONE Packing: NONE JENAN PENNY MD May 17, 2020 09:33
[2020-05-17] MEDS ORDERED: PROPOFOL INJECTION 50 ML IV ONE (10:05)
[2020-05-17] MEDS ORDERED: FUROSEMIDE 40 MG/4 ML INJ (LASIX) ONE (10:35)
[2020-05-17] MEDS ORDERED: KETOROLAC 30 MG/ML VIAL ONE (10:35)
[2020-05-17] MEDS ORDERED: GLYCOPYRROLATE 0.2 MG/ML (ROBINUL) 2 ML VIAL ONE (10:43)
[2020-05-17] MEDS ORDERED: NEOSTIGMINE 3 MG/3 ML VIAL ONE (10:43)
[2020-05-17] MEDS ORDERED: IOPAMIDOL 61% 30 ML (ISOVUE 300) VIAL ONE (11:00)
[2020-05-17] MEDS ORDERED: HYDROmorphone 2 MG/ML VIAL (DILAUDID) IV ONE (11:00)
[2020-05-17] MEDS ORDERED: ONDANSETRON 4 MG/2 ML (SDV) Z0FRAN IVP PRN (11:00)
--- NOTE | 2020-05-17 11:50 | NUR ---
PATIENT RETURNED FROM PROCEDURE, BEDSIDE REPORT FROM ABELARDO GARZA RN
--- NOTE | 2020-05-17 14:24 | Anesthesia-General Post-Op ---
General Patient Condition Mental Status/LOC: Same as Preop Cardiovascular: Satisfactory Nausea/Vomiting: Absent Respiratory: Satisfactory Pain: Controlled Complications: Absent Post Op Complications Complications None Follow Up Care/Instructions Patient Instructions None needed. Anesthesia/Patient Condition Patient Condition Patient is doing well, no complaints, stable vital signs, no apparent adverse anesthesia problems. No complications reported per nursing. D/C home per [facility] [place] [facility] Criteria: Yes AYE ROGERS CRNA May 17, 2020 14:24
--- NOTE | 2020-05-17 16:39 | Diagnostic Imaging Report ---
EXAM: Abdomen at 4:07 PM INDICATION: Left flank pain The exam performed earlier today at 8:42 again noted a small calcific density near the ureterovesical junction on the left. On this study, that finding cannot be identified with certainty. This area is partially obscured by bowel gas and fecal material however. No other abnormality is noted. IMPRESSION: The small obstructive calculus seen on the prior exam is not clearly evident on this study. Whether it is still present but obscured by the bowel gas and fecal material or whether it has passed however is not certain. Dictated by: Dictated on workstation # [id number]
[2020-05-17] MEDS ORDERED: polyethylene glycoL POWDER 17 GM (MIRALAX) PACK PO PRN (17:00)
[2020-05-17] MEDS ORDERED: BISACODYL 5 MG (DULCOLAX) TABLET PO PRN (17:00)
--- NOTE | 2020-05-17 17:02 | OPERATIVE REPORT ---
DATE OF SERVICE: 05/17/2020 PREOPERATIVE DIAGNOSIS: Left distal ureteral stone. POSTOPERATIVE DIAGNOSIS: Left distal ureteral stone. OPERATION PERFORMED: Left ureteroscopy, insertion of left ureteral catheter, retrograde urogram and left ESWL. SURGEON: Jai Penny MD ANESTHESIA: General. COMPLICATIONS: None. DESCRIPTION OF PROCEDURE: Under satisfactory general anesthesia, the patient in lithotomy position, cystoscope was introduced under vision. Anterior urethra was normal. The prostate was nonobstructing. Bladder neck showed some medium bar, but no obstruction. The bladder showed some mild trabeculations. Ureteric orifices normal on the right side. The left side was kind of a little edematous and very sluggish efflux. Using the foroblique lens, I dilated the left ureteral orifice intramural portion to accommodate a 6.9 Fijian semi-rigid ureteroscope; however, I could not get to the stone because of most probably severe spasm of the ureter without, doubt stricture. So I discontinued further attempt, removed the ureteroscope, reinserted the cystoscope and passed a 6-Fijian spiral tip ureteral catheter very easily, which ruled out possibility of a stricture, past the stone all the way up to the kidney. I left it indwelling. I removed the cystoscope after emptying the bladder. Then, we moved the patient to the ESWL suite, put in supine and with a combination of the contrast injection was able to localize a filling defect just proximal to that area of narrowing either again or spasm without stricture. We directed the shockwaves on the spot. A total of 3000 at kV of 10, backed up and we then removed the ureteral catheter during the procedure, injected distal to the stone and then remove it completely. There was contrast flowing down distal to the area of the stone. There was some emptying of the ureter proximally, but not completely. There was quite a bit of contrast in the bladder. The patient received 40 mg of Lasix and 30 mg of Toradol IV at the end of the procedure. He tolerated the procedure and anesthesia well and was sent to recovery room in stable condition. Job ID: [id number] DocumentID: [id number] Dictated Date: 05/17/2020 10:44:06 Certified Pharmacist Assistant Date: 05/17/2020 16:52:50 Dictated By: JAI PENNY MD
[2020-05-17] MEDS: TRIM/SULFAMETH 160/800 (SEPTRA DS) TAB PO SCH (17:22)
[2020-05-18 00:31] VITALS: BP 123/81
[2020-05-18 04:35] VITALS: BP 116/73
[2020-05-18 05:35] LABS: BASOPHILS % (AUTO) 0 % (0-10); EOSINOPHILS % (AUTO) 0 % (0-10); HEMATOCRIT 35 % (40-54); LYMPHOCYTES # (AUTO) 1.5 10^3/uL (1.0-4.0); LYMPHOCYTES % (AUTO) 16 % (12-44); MEAN CORPUSCULAR HEMOGLOBIN 31 pg (25-34); MEAN CORPUSCULAR HGB CONC 34 g/dL (32-36); MEAN CORPUSCULAR VOLUME 89 fL (80-99); MEAN PLATELET VOLUME 9.9 fL (9.0-12.2); MONOCYTES % (AUTO) 11 % (0-12); NEUTROPHILS # (AUTO) 6.6 10^3/uL (1.8-7.8); NEUTROPHILS % (AUTO) 72 % (42-75); PLATELET COUNT 226 10^3/uL (130-400); WHITE BLOOD COUNT 9.1 10^3/uL (4.3-11.0)
[2020-05-18 05:57] LABS: ALBUMIN 3.4 GM/DL (3.2-4.5); POTASSIUM 3.9 MMOL/L (3.6-5.0)
[2020-05-18 05:59] LABS: CALCIUM 8.6 MG/DL (8.5-10.1)
[2020-05-18 06:00] LABS: TOTAL PROTEIN 6.4 GM/DL (6.4-8.2)
[2020-05-18 06:02] LABS: BILIRUBIN,TOTAL 0.5 MG/DL (0.1-1.0)
[2020-05-18 06:03] LABS: CREATININE SERUM 1.49 MG/DL (0.60-1.30)
[2020-05-18 08:00] VITALS: BP 152/88
--- NOTE | 2020-05-18 08:05 | Anesthesia-General Post-Op ---
General Patient Condition Mental Status/LOC: Same as Preop Cardiovascular: Satisfactory Nausea/Vomiting: Absent Respiratory: Satisfactory Pain: Controlled Complications: Absent Post Op Complications Complications None Follow Up Care/Instructions Patient Instructions None needed. Anesthesia/Patient Condition Patient Condition Patient is doing well, no complaints, stable vital signs, no apparent adverse anesthesia problems. No complications reported per nursing. [place] [facility] [place]: Yes ROVERTO WINKLER CRNA May 18, 2020 08:05
[2020-05-18] MEDS: SENNA W/DOCUSATE (SENOKOT S) TABLET PO SCH (08:34)
[2020-05-18] MEDS: TRIM/SULFAMETH 160/800 (SEPTRA DS) TAB PO SCH (08:35)
[2020-05-18] MEDS: TAMSULOSIN 0.4 MG (FLOMAX) CAP PO SCH (08:35)
[2020-05-18] MEDS ORDERED: ACHD5005 PO (09:44)
[2020-05-18] MEDS ORDERED: SULF1TAB35 PO (09:44)
--- NOTE | 2020-05-18 09:45 | Discharge Summary ---
Discharge Summary Hospital Course Was the Problem List Reviewed?: Yes Problems/Dx: (1) Kidney stone on left side Status: Acute (2) Renal colic on left side Status: Acute Hospital Course Date of Admission: May 17, 2020 at 10:20 Admission Diagnosis : Family Physician/Provider: Romy Fountain Aprn Date of Discharge: 05/18/20 Discharge Diagnosis: Left renal stone UVJ with hydronephrosis, TEMI Hospital Course: Hospital Course: Pt had an uneventful hospital course. He was admitted, required urology consultation, KUB checked the stone and it was in the UVJ junction. Dr. Degroot prepped him with IV fluids, IV antibiotics and underwent procedure with lithotripsy and stent placement which resolved the stone and hydronephrosis. Pt overall did well. Creatinine remained slightly elevated at 1.49. Will definitely need a BMP creatinine check on Saturday and follow up with Romy Fountain Labs and Pending Lab Test: Laboratory Tests 05/18/20 04:20: White Blood Count 9.1, Red Blood Count 3.93L, Hemoglobin 12.0L, Hematocrit 35L, Mean Corpuscular Volume 89, Mean Corpuscular Hemoglobin 31, Mean Corpuscular Hemoglobin Concent 34, Red Cell Distribution Width 11.4, Platelet Count 226, Mean Platelet Volume 9.9, Immature Granulocyte % (Auto) 0, Neutrophils (%) (Auto) 72, Lymphocytes (%) (Auto) 16, Monocytes (%) (Auto) 11, Eosinophils (%) (Auto) 0, Basophils (%) (Auto) 0, Neutrophils # (Auto) 6.6, Lymphocytes # (Auto) 1.5, Monocytes # (Auto) 1.0, Eosinophils # (Auto) 0.0, Basophils # (Auto) 0.0, Immature Granulocyte # (Auto) 0.0, Sodium Level 136, Potassium Level 3.9, Chloride Level 105, Carbon Dioxide Level 21, Anion Gap 10, Blood Urea Nitrogen 21H, Creatinine 1.49H, Estimat Glomerular Filtration Rate 53, BUN/Creatinine Ratio 14, Glucose Level 107H, Calcium Level 8.6, Corrected Calcium 9.1, Total Bilirubin 0.5, Aspartate Amino Transf (AST/SGOT) 13, Alanine Aminotransferase (ALT/SGPT) 18, Alkaline Phosphatase 60, Total Protein 6.4, Albumin 3.4 Microbiology 05/16/20 MRSA Screen - Final, Complete MRSA not isolated Home Meds Active Bactrim Ds Tablet (Sulfamethoxazole/Trimethoprim) 1 Each Tablet 1 Each PO BID Hydrocodone-Acetamin 5-325 mg (Hydrocodone/Acetaminophen) 1 Each Tablet 1 Each PO BID PRN Reported Stool Softener (Docusate Sodium) 100 Mg Tablet 100 Mg PO DAILY PRN Ibuprofen 200 Mg Tablet 400-600 Mg PO Q6H PRN Prilosec Otc (Omeprazole Magnesium) 20 Mg Tablet.dr 20 Mg PO DAILY Flomax (Tamsulosin HCl) 0.4 Mg Cap 0.4 Mg PO DAILY Ondansetron Odt (Ondansetron) 4 Mg Tab.rapdis 4 Mg PO Q6H PRN Alprazolam 0.5 Mg Tablet 0.5 Mg PO TID PRN Assessment/Pt Instructions PCP Saturday Discharge Planning: <30 minutes discharge planning Discharge Instructions Discharge Diet: No Restrictions Discharge Physical Examination Vital Signs Vital Signs Date Time Temp Pulse Resp B/P (MAP) Pulse Ox O2 Delivery O2 Flow Rate FiO2 05/18/20 07:45 97 Room Air 3.00 05/18/20 04:35 36.6 78 20 116/73 (87) General Appearance: No Apparent Distress, WD/WN Respiratory: Lungs Clear Cardiovascular: Regular Rate, Rhythm Neurologic/Psychiatric: Alert, Oriented x3, No Motor/Sensory Deficits, Normal Mood/Affect Allergies: Coded Allergies: egg (Unverified Adverse Reaction, Unknown, 05/12/20) Discharge Summary Date of Admission May 17, 2020 at 10:20 Date of Discharge Discharge Date: May 18, 2020 Admission Diagnosis Assessment: Left UVJ kidney stone with hydronephrosis N/V Abdominal pain Plan: Pain meds IVF Rocephin Urology Discharge Diagnosis (1) Kidney stone on left side Status: Acute (2) Renal colic on left side Status: Acute Clinical Quality Measures DVT/VTE Risk/Contraindication: RFS Level Per Nursing on Admit: 0=No Risk/No VTE PPX NAJMA RAMIREZ DO May 18, 2020 09:45
== END 2020-05-18 10:34 | disposition home or self-care (01) | DRG 694 ==
LOC: EDUNIT# 11:19 → ER FS 11:21 → 4TH 14:51 → OBSVTOIN 05-16 10:20 → INTOOBSV 05-17 10:20 → OBSVTOIN 05-17 10:20 → UNDODISIN 05-18 10:34
PROVIDERS: ADMIT Internal Medicine; ATTEND Internal Medicine
PROC: 0TF7XZZ Fragmentation in Left Ureter, External Approach (ICD-10-PCS; principal; 2020-05-17 09:30)
PROC: 0T9780Z Drainage of Left Ureter with Drainage Device, Via Natural or Artificial Opening Endoscopic (ICD-10-PCS; 2020-05-17 09:30)
DX: N13.2 Hydronephrosis with renal and ureteral calculous obstruction (principal); N17.9 Acute kidney failure, unspecified; E86.0 Dehydration; M19.91 Primary osteoarthritis, unspecified site; Z20.828 Contact with and (suspected) exposure to other viral communicable diseases
CPT/HCPCS: 36415; 74018; 74019; 76000; 80048; 80053; 85025; 87081; 87635; G0378

== ENCOUNTER → 2021-09-29 | Outpatient (CLI) | payer OTHER ==
[~2021-09-29] MED LIST changes: +DOCU100T7 PO; +IBUP-2473 PO; +OMEP20TA33 PO; +SULF1TAB38 PO
--- NOTE | 2021-09-29 14:54 | Diagnostic Imaging Report ---
PROCEDURE: CT abdomen and pelvis without contrast. TECHNIQUE: Multiple contiguous axial images were obtained through the abdomen and pelvis without the use of intravenous contrast. Auto Exposure Controls were utilized during the CT exam to meet ALARA standards for radiation dose reduction. INDICATION: Left flank pain and hematuria. COMPARISON: Correlation is made with prior CT from 05/12/2020. FINDINGS: The lung bases are clear. The liver is unremarkable. Gallbladder is contracted. There is no biliary ductal dilatation. Pancreas and spleen are unremarkable. No adrenal mass is detected. No renal calculi are detected. No ureteral calculi or hydronephrosis is seen on today's study. Aorta is nonaneurysmal. Bowel loops are normal in caliber. There is no obstruction. No inflammatory changes are seen. There are clips in the right lower quadrant. No free fluid or fluid collection is seen. Bladder and prostate are unremarkable. Postoperative changes in the lower lumbosacral spine are noted. IMPRESSION: 1. No evidence of urinary tract calculi or obstruction is identified on today's study. No acute feature is detected. Dictated by: Dictated on workstation # [id number]
--- NOTE | 2021-09-29 15:28 | Diagnostic Imaging Report ---
INDICATION: Hematuria. EXAMINATION: Abdominal films were obtained at 2:44 p.m. COMPARISON: 05/17/2020. FINDINGS: There are postop changes in the lower lumbar spine status post fusion. There are surgical clips in the left side of pelvis in the right lower quadrant. No overt radiopaque calcification is identified. Bowel gas pattern is normal. There is prominent osteophyte formation at L1-L2. IMPRESSION: No radiopaque calculi over the renal shadows. Unremarkable bowel gas pattern. Dictated by: Dictated on workstation # [id number]
== END ==
LOC: RAD FS 14:29
PROVIDERS: ATTEND Urology
DX: R31.9 Hematuria, unspecified (principal); R10.9 Unspecified abdominal pain; Z87.442 Personal history of urinary calculi
CPT/HCPCS: 74018; 74176